=== PATIENT | female | born 2000 | race Hispanic/Latino ===

== ENCOUNTER 2018-11-18 22:24 | Emergency (ER) | payer SELFPAY ==
[2018-11-19 00:02] LABS: Absolute Lymphocytes (CBC) 1.8 K/uL (0.7-4.9); Basophils % 0.2 % (0-1.3); Hematocrit 35.6 % (36.0-45.0); Lymphocytes % 22.2 % (15.3-44.8); MPV 8.8 fL (7.6-11.3); RBC Red Blood Cell Count 3.85 M/uL (3.86-4.86)
[2018-11-19 00:04] LABS: Urine Blood 2+ (NEG); Urine Glucose NEGATIVE (NEG); Urine Protein NEGATIVE (NEG); Urine Specific Gravity >1.030 (1.005-1.030); Urine pH 5.5 (5.0-7.0)
[2018-11-19 00:06] LABS: Urine Bacteria 20-50 /HPF (<20); Urine Culture Reflex Order REFLEXED; Urine RBC <5 /HPF (NONE SEEN)
--- NOTE | 2018-11-19 00:58 | ER ---
Nurse's Notes [facility] Name: Lottie Zamudio Age: 18 yrs Sex: Female : 2000 Arrival Date: 11/18/2018 Time: 22:27 Bed 5 Private MD: Diagnosis: 13 weeks gestation of Presentation: 11/18 22:46 Presenting complaint: Patient states: vaginal bleeding, only spotting started today. pt ak1 sees CASINO DEALER in [place]. Transition of care: patient was not received from another setting of care. Onset of symptoms was November 18, 2018. Risk Assessment: Do you want to hurt yourself or someone else? Patient reports no desire to harm self or others. Initial Sepsis Screen: Does the patient meet any 2 criteria? No. Patient's initial sepsis screen is negative. Does the patient have a suspected source of infection? No. Patient's initial sepsis screen is negative. Note bulgarian speaking only. Care prior to arrival: None. 22:46 Method Of Arrival: Ambulatory ak1 22:46 Acuity: ROGERS 3 ak1 Triage Assessment: 22:47 General: Appears in no apparent distress. Behavior is calm, cooperative. ak1 CASINO DEALER: 22:47 LMP 08/24/2018, Verified, EDC 05/31/2019, Gestational age from LMP: 12 weeks 3 ak1 days Historical: - Allergies: 22:47 No Known Allergies; ak1 - Home Meds: 22:47 Vitamin Oral [Active]; ak1 - PMHx: 22:47 None; ak1 - PSHx: 22:47 Unable to obtain; ak1 - Immunization history:: Adult Immunizations unknown. - Social history:: Smoking status: Patient/guardian denies using tobacco. - Ebola Screening: : No symptoms or risks identified at this time. Screenin:48 Abuse screen: Denies threats or abuse. Denies injuries from another. Nutritional ak1 screening: No deficits noted. Tuberculosis screening: No symptoms or risk factors identified. Fall Risk None identified. Assessment: 23:46 Obstetrical Assessment: pt denies pain or discomfort. General: Appears in no apparent ea distress. Behavior is calm, cooperative, appropriate for age. Pain: Denies pain. Neuro: Level of Consciousness is awake, alert, obeys commands, Oriented to person, place, time, situation. Cardiovascular: Patient's skin is warm and dry. Respiratory: Airway is patent Respiratory effort is even, unlabored, Respiratory pattern is regular, symmetrical. GI: Patient currently denies abdominal pain. : Reports vaginal bleeding that is Report one episode of vaginal bleeding, states it was just one spot on her underwear. Derm: Skin is pink, warm \T\ dry. Vital Signs: 22:47 BP 120 / 56; Pulse 84; Resp 16; Temp 97.4; Pulse Ox 100% on R/A; Weight 56.7 kg (R); ak1 Height 5 ft. 3 in. (160.02 cm) (R); Pain 0/10; 23:52 BP 96 / 56; Pulse 70; Resp 18; Pulse Ox 100% ; ea 11/19 01:00 BP 101 / 64; Pulse 78; Resp 16; Temp 97.5; Pulse Ox 100% on R/A; rv 11/18 22:47 Body Mass Index 22.14 (56.70 kg, 160.02 cm) ak1 Vitals: 11/18 23:45 Heart Tones 160. ea ED Course: 22:27 Patient arrived in ED. ag3 22:47 Triage completed. ak1 22:47 Arm band placed on Patient placed in waiting room, Patient notified of wait time. pt ak1 given urine cup. 22:53 K[facility] Grossman [facility]-C [facility] kb 22:53 Boni Bean MD is Attending Physician. kb 23:23 Mirella Melvin, JESSICA is Primary Nurse. ea 23:35 Inserted saline lock: 20 gauge in right antecubital area, using aseptic technique. ea 23:46 Patient has correct armband on for positive identification. Placed in gown. Bed in low ea position. Call light in reach. 11/19 00:55 1St Trimest Single 1St Fetus In Process Unspecified. EDMS 01:14 No provider procedures requiring assistance completed. IV discontinued, intact, rv bleeding controlled, No redness/swelling at site. Pressure dressing applied. Administered Medications: No medications were administered Point of Care Testing: Urine : 11/18 23:48 hCG Reading: Positive; ea Outcome: 11/19 00:57 Discharge ordered by . kb 01:14 Discharged to home ambulatory. rv 01:14 Condition: good 01:14 Discharge instructions given to patient, Instructed on discharge instructions, follow up and referral plans. Demonstrated understanding of instructions, follow-up care. 01:14 Patient left the ED. rv Signatures: Dispatcher [employer] Kya Blankenship, TATIANNA PINTO-Iris Nelson, RN RN ak1 Mirella Melvin RN RN Brian Ahn, RN RN Melissa Cueva
--- NOTE | 2018-11-19 00:59 | EDPHYS ---
Physician Documentation [facility] Name: Lottie Zamudio Age: 18 yrs Sex: Female : 2000 Arrival Date: 11/18/2018 Time: 22:27 Bed 5 Private MD: ED Physician Boni Bean HPI: 11/19 00:13 This 18 yrs old Female presents to ER via Ambulatory with complaints of Vaginal kb Bleeding, + Preg <12wks. 00:13 The patient presents to the emergency department with vaginal bleeding, described as kb spotting. The estimated gestational age is 13 weeks. course: care: in [place], Leakage of Fluid: none appreciated, Ultrasound: the patient had an ultrasound, which was normal, Risk/complications: no obvious risks or complications are appreciated. Previous pregnancies: the patient has never been . Associated signs and symptoms: Pertinent positives: vaginal bleeding. The patient has not experienced similar symptoms in the past. The patient has not recently seen a physician. Pt reports she had a small spot of blood today. Denies any bleeding now. Denies abd pain. Has had normal checkups by her dr in [place]. DATA LIBRARIAN: 11/18 22:47 LMP 08/24/2018, Verified, EDC 05/31/2019, Gestational age from LMP: 12 weeks 3 ak1 days Historical: - Allergies: 22:47 No Known Allergies; ak1 - Home Meds: 22:47 Vitamin Oral [Active]; ak1 - PMHx: 22:47 None; ak1 - PSHx: 22:47 Unable to obtain; ak1 - Immunization history:: Adult Immunizations unknown. - Social history:: Smoking status: Patient/guardian denies using tobacco. - Ebola Screening: : No symptoms or risks identified at this time. ROS: 11/19 00:13 Constitutional: Negative for fever, chills, and weight loss, ENT: Negative for injury, kb pain, and discharge, Neck: Negative for injury, pain, and swelling, Cardiovascular: Negative for chest pain, palpitations, and edema, Respiratory: Negative for shortness of breath, cough, wheezing, and pleuritic chest pain, Abdomen/GI: Negative for abdominal pain, nausea, vomiting, diarrhea, and constipation, Back: Negative for injury and pain, MS/Extremity: Negative for injury and deformity, Skin: Negative for injury, rash, and discoloration, Neuro: Negative for headache, weakness, numbness, tingling, and seizure. : Positive for vaginal bleeding. Exam: 00:13 Constitutional: This is a well developed, well nourished patient who is awake, alert, kb and in no acute distress. Head/Face: Normocephalic, atraumatic. ENT: Nares patent. No nasal discharge, no septal abnormalities noted. Tympanic membranes are normal and external auditory canals are clear. Oropharynx with no redness, swelling, or masses, exudates, or evidence of obstruction, uvula midline. Mucous membranes moist. Neck: Trachea midline, no thyromegaly or masses palpated, and no cervical lymphadenopathy. Supple, full range of motion without nuchal rigidity, or vertebral point tenderness. No Meningismus. Chest/axilla: Normal chest wall appearance and motion. Nontender with no deformity. No lesions are appreciated. Cardiovascular: Regular rate and rhythm with a normal S1 and S2. No gallops, murmurs, or rubs. Normal PMI, no JVD. No pulse deficits. Respiratory: Lungs have equal breath sounds bilaterally, clear to auscultation and percussion. No rales, rhonchi or wheezes noted. No increased work of breathing, no retractions or nasal flaring. Abdomen/GI: Soft, non-tender, with normal bowel sounds. No distension or tympany. No guarding or rebound. No evidence of tenderness throughout. Back: No spinal tenderness. No costovertebral tenderness. Full range of motion. Skin: Warm, dry with normal turgor. Normal color with no rashes, no lesions, and no evidence of cellulitis. MS/ Extremity: Pulses equal, no cyanosis. Neurovascular intact. Full, normal range of motion. Neuro: Awake and alert, GCS 15, oriented to person, place, time, and situation. Cranial nerves II-XII grossly intact. Motor strength 5/5 in all extremities. Sensory grossly intact. Cerebellar exam normal. Normal gait. Vital Signs: 11/18 22:47 BP 120 / 56; Pulse 84; Resp 16; Temp 97.4; Pulse Ox 100% on R/A; Weight 56.7 kg (R); ak1 Height 5 ft. 3 in. (160.02 cm) (R); Pain 0/10; 23:52 BP 96 / 56; Pulse 70; Resp 18; Pulse Ox 100% ; ea 11/19 01:00 BP 101 / 64; Pulse 78; Resp 16; Temp 97.5; Pulse Ox 100% on R/A; rv 11/18 22:47 Body Mass Index 22.14 (56.70 kg, 160.02 cm) ak1 MDM: 11/18 23:23 Patient medically screened. kb 11/19 00:13 Data reviewed: vital signs, nurses notes. Data interpreted: Pulse oximetry: on room air kb is 100 %. Interpretation: normal. Counseling: I had a detailed discussion with the patient and/or guardian regarding: the historical points, exam findings, and any diagnostic results supporting the discharge/admit diagnosis, lab results, radiology results, the need for outpatient follow up, an OB/Gyne specialist, to return to the emergency department if symptoms worsen or persist or if there are any questions or concerns that arise at home. 11/18 23:07 Order name: Quantitative Hcg 11/18 23:07 Order name: Abo/rh Typing; Complete Time: 00:24 kb 11/18 23:07 Order name: Basic Metabolic Panel 11/18 23:07 Order name: CBC with Diff; Complete Time: 00:07 kb 11/18 23:33 Order name: Urine Microscopic Only; Complete Time: 00:07 ar5 11/18 23:40 Order name: Urine Dipstick--Ancillary (enter results); Complete Time: 00:07 ar5 11/18 23:07 Order name: Urine Test (obtain specimen); Complete Time: 23:34 kb 11/18 23:07 Order name: IV Saline Lock; Complete Time: 23:34 kb 11/18 23:07 Order name: Labs collected and sent; Complete Time: 23:34 kb 11/18 23:07 Order name: NPO; Complete Time: 23:34 kb 11/18 23:40 Order name: Urine --Ancillary (enter results); Complete Time: 00:07 ar5 11/19 00:13 Order name: Urine Culture EDRI 11/19 00:41 Order name: 1St Trimest Single 1St Fetus EDRI 11/18 23:07 Order name: Urine Dipstick-Ancillary (obtain specimen); Complete Time: 23:34 kb Administered Medications: No medications were administered Point of Care Testing: Urine : 11/18 23:48 hCG Reading: Positive; ea Disposition: 11/19 07:12 Co-signature as Attending Physician, Boni Bean MD Available for consultation at ps1 all times. . Disposition: 11/19/18 00:57 Discharged to Home. Impression: 13 weeks gestation of . - Condition is Stable. - Discharge Instructions: Second Trimester of , [id number]. - Medication Reconciliation Form, Thank You Letter, Antibiotic Education, Prescription Opioid Use form. - Follow up: Emergency Department; When: As needed; Reason: Worsening of condition. Follow up: Private Physician; When: 2 - 3 days; Reason: Recheck today's complaints, Continuance of care, Re-evaluation by your physician. Signatures: Dispatcher [employer] EDRI Kya Grossman, TATIANNA PINTO-Iris Nelson, RN RN ak1 Boni Bean MD MD ps1 Brian Oates RN RN rv Corrections: (The following items were deleted from the chart) 00:41 00:11 Transvaginal Ob+US.RAD.BRZ ordered. [facility] 01:14 00:57 11/19/2018 00:57 Discharged to Home. Impression: 13 weeks gestation of . rv Condition is Stable. Forms are Medication Reconciliation Form, Thank You Letter, Antibiotic Education, Prescription Opioid Use. Follow up: Emergency Department; When: As needed; Reason: Worsening of condition. Follow up: Private Physician; When: 2 - 3 days; Reason: Recheck today's complaints, Continuance of care, Re-evaluation by your physician. kb
[2018-11-19 01:20] LABS: BUN Blood Urea Nitrogen 14 mg/dL (7-18); Bicarbonate 23 mmol/L (21-32); Glucose Level 84 mg/dL (74-106); HCG, Quantitative 55174 mIU/mL (1-3); Potassium 3.4 mmol/L (3.5-5.1); Sodium Level 138 mmol/L (136-145)
--- NOTE | 2018-11-19 08:12 | RAD REPORT ---
EXAM DESCRIPTION: US - 1St Trimest Single 1St Fetus - 11/19/2018 12:53 am CLINICAL HISTORY: with vaginal bleeding COMPARISON: None. FINDINGS: The uterus measures 10 x 7 x 8 centimeters. pole with a crown-rump length 7 centime ters. . Cardiac activity 166 beats per minute 3 x 2 centimeter subchorionic bleed centimeter subchori onic bleed. An additional 2 x 1 centimeters subchorionic bleed present. Amniotic fluid within normal limits Placenta previa is not present. Right and left ovary appear normal. . An adnexal mass is not noted. No significant free fluid is seen. IMPRESSION: Single live intrauterine with an estimated gestational age 13 weeks 2 days ED D 05/25/2019 Subchorionic bleeds If a survey is desired should be performed in approximately 5 weeks
== END 2018-11-19 01:14 | disposition home or self-care (01) ==
LOC: ER 22:24
DX: O20.9 Hemorrhage in early pregnancy, unspecified (principal); Z3A.13 13 weeks gestation of pregnancy
CPT/HCPCS: 36415; 76801; 80048; 81003; 81015; 81025; 84702; 85025; 86900; 86901; 87086; 87088; 99284

== ENCOUNTER 2018-11-25 22:30 | Emergency (ER) | payer SELFPAY ==
--- OUTSIDE RECORDS SUMMARY | 2018-11-25 22:32 | XMS REPORT | Summary of Care ---
:2000 Author Organization [facility] Address [address] [place] [id number] Care Team Providers Name Role Phone Digna Tamayo [facility] Primary Care Provider Reason for Visit Reason Comments ULTRASOUND Encounter Details Date Type Department Care Team Description 11/25/2018 Case Management [facility]- Digna Tamayo, ULTRASOUND [facility] [address] [facility] [address] [address] [place], [place] [address] Allergies No Known Allergiesdocumented as of this encounter (statuses as of 11/25/2018) Medications No known medicationsdocumented as of this encounter (statuses as of 11/25/2018) Active Problems Problem Noted Date Vaginal bleeding in , second trimester 11/21/2018 High risk , antepartum 11/21/2018 Encounter for PPD test 11/21/2018 Estimated Date of Delivery Comments Yes 05/26/2019 Based on last menstrual period of 08/19/2018 documented as of this encounter (statuses as of 11/25/2018) Immunizations Name Administration Dates Next Due PPD (TB) 11/21/2018 (Deferred: Contraindication) documented as of this encounter Social History Tobacco Use Types Packs/Day Years Used Date Never Smoker Smokeless Tobacco: Never Used Alcohol Use Drinks/Week oz/Week Comments Not Currently Estimated Date of Delivery Comments Yes 05/26/2019 Based on last menstrual period of 08/19/2018 Sex Assigned at Date Recorded Not on file Job Start Date Occupation Industry Not on file Not on file Not on file Travel History Travel Start Travel End No recent travel history available. documented as of this encounter Last Filed Vital Signs Not on filedocumented in this encounter Plan of Treatment Date Type Specialty Care Team Description 11/26/2018 Nurse Visit [facility] Satellites Visit, [facility] Nurse 12/23/2018 Routine Visit OB Satellites Digna Tamayo, WATER ENGINE[employer] [address] [place], [place] [id number] Health Maintenance Due Date Last Done Comments MENINGOCOCCAL B VACCINES (1 of 2 - 2008 Risk Bexsero 2-dose series) HPV VACCINES (1 - Female 3-dose 2013 series) DTaP,Tdap,and Td Vaccines (1 - 2017 Tdap) INFLUENZA VACCINE 12/15/2018 CHLAMYDIA SCREENING 11/22/2019 11/21/2018 MENINGOCOCCAL VACCINE Aged Out No longer eligible based on patient's age to complete this topic PNEUMOCOCCAL 0-64 YEARS COMBINED Aged Out No longer eligible based on SERIES patient's age to complete this topic documented as of this encounter Results Not on filedocumented in this encounter Insurance Payer Benefit Plan / Subscriber ID Effective Phone Address Type Group Dates MEDICAID MEDICAID PENDING 2018-[address] Pending PENDING PENDING tarun [place] [id number] documented as of this encounter
--- OUTSIDE RECORDS SUMMARY | 2018-11-25 22:32 | XMS REPORT ---
:2000 [facility] Address [address] [place] [address] Dr. Telles[address] [place] [id number] Care Team Providers Name Role Phone Unavailable Unavailable Unavailable Problems This patient has no known problems. Allergies, Adverse Reactions, Alerts This patient has no known allergies or adverse reactions. Medications This patient has no known medications.
--- OUTSIDE RECORDS SUMMARY | 2018-11-25 22:32 | XMS REPORT | Summary of Care ---
:2000 Author Organization [facility] - Health Address [address] [place] [address] Care Team Providers Name Role Phone Digna Tamayo Primary Care Provider Encounter Details Date Type Department Care Team Description 11/21/2018 Orders Only [facility] Doctor Unassigned, No [address] [facility] [place] [address] [address] [place] [address] Allergies Not on Filedocumented as of this encounter (statuses as of 11/21/2018) Medications Not on filedocumented as of this encounter (statuses as of 11/21/2018) Active Problems Not on filedocumented as of this encounter (statuses as of 11/21/2018) Social History Tobacco Use Types Packs/Day Years Used Date Never Assessed Sex Assigned at Date Recorded Not on file Job Start Date Occupation Industry Not on file Not on file Not on file Travel History Travel Start Travel End No recent travel history available. documented as of this encounter Last Filed Vital Signs Not on filedocumented in this encounter Plan of Treatment Date Type Specialty Care Team Description 11/21/2018 Office Visit OB Digna Voss FNP [address] [place], [place] [address] Arrived 3, [facility] Room 11/21/2018 Initial Visit OB Digna oVss FNP [address] [place], [place] [phone] Health Maintenance Due Date Last Done Comments MENINGOCOCCAL B VACCINES (1 of 2 - 2008 Risk Bexsero 2-dose series) VARICELLA VACCINES (1 of 2 - 13+ 2011 2-dose series) HPV VACCINES (1 - Female 3-dose 2013 series) CHLAMYDIA SCREENING 2014 DTaP,Tdap,and Td Vaccines (1 - 2017 Tdap) INFLUENZA VACCINE 12/15/2018 MENINGOCOCCAL VACCINE Aged Out No longer eligible based on patient's age to complete this topic PNEUMOCOCCAL 0-64 YEARS COMBINED Aged Out No longer eligible based on SERIES patient's age to complete this topic documented as of this encounter Procedures Procedure Name Priority Date/Time Associated Diagnosis Comments ASSIGNMENT OF BENEFITS Routine 11/21/2018 1:56 PM CDT documented in this encounter Results Not on filedocumented in this encounter
--- OUTSIDE RECORDS SUMMARY | 2018-11-25 22:32 | XMS REPORT | Summary of Care ---
:2000 Author Organization [facility] Address [address] [place] [id number] Care Team Providers Name Role Phone Digna Tamayo Primary Care Provider Reason for Referral (Routine) Status Reason Specialty Diagnoses / Referred By Referred To Procedures Contact Contact New Request Diagnoses Encounter for PPD test Digna Tamayo, Procedures PPD (TB) SKIN TEST CULINARY ARTS INSTRUCTOR [address] [place] [address] Reason for Visit Reason Comments New OB Visit Encounter Details Date Type Department Care Team Description 11/21/[address] [facility]- Digna Tamayo High risk , antepartum (Primary Dx); Visit BLAIR [place] Vaginal bleeding in , second trimester; [address] BMI 23.0-23.9, adult; [place], [place] Recent foreign travel; [id number], [place] Encounter for PPD test [phone] [phone] Allergies No Known Allergiesdocumented as of this encounter (statuses as of 11/21/2018) Medications No known medicationsdocumented as of this encounter (statuses as of 11/21/2018) Active Problems Problem Noted Date Vaginal bleeding in , second trimester 11/21/2018 High risk , antepartum 11/21/2018 Encounter for PPD test 11/21/2018 Estimated Date of Delivery Comments Yes 05/26/2019 Based on last menstrual period of 08/19/2018 documented as of this encounter (statuses as of 11/21/2018) Immunizations Name Administration Dates Next Due PPD [...] of this encounter Last Filed Vital Signs Vital Sign Reading Time Taken Comments Blood Pressure 92/62 11/21/2018 2:42 PM CDT Pulse 66 11/21/2018 2:42 PM CDT Temperature 37.7 C (99.8 F) 11/21/2018 2:42 PM CDT Respiratory Rate 20 11/21/2018 2:42 PM CDT Oxygen Saturation - - Inhaled Oxygen Concentration - - Weight 53.8 kg (118 lb 8 oz) 11/21/2018 2:42 PM CDT Height 151 cm (4' 11.45") 11/21/2018 2:42 PM CDT Body Mass Index 23.57 11/21/2018 2:42 PM CDT documented in this encounter Progress Notes Digna Tamayo, CULINARY ARTS INSTRUCTOR - 11/21/2018 2:30 PM CDT Chief complaint: Chief Complaint Patient presents with New OB Visit CC: Initial Visit Lottie Herzog is a 18 year old, , /White female. Patient's last menstrual period was 08/19/2018. She is 13w3d with an intrauterine . Her Estimated Date of Delivery: 05/26/19. She is being seen today for her first obstetrical visit. Pt complains today of vaginal bleeding and mild cramping. Pt reports she had an ultrasound in [place] they said there was a small bleed inside and if she were ever to start bleeding they gave her a prescription for Dectil OB to start taking. She reports she started having light vaginal bleeding on 11/19/18 so she went to [facility] ER in [place], records requested. She reports she has been having light bleeding since that time. Started having some mild pains on the sides of her pelvis yesterday. Denies current physical, emotional or sexual abuse. Pt does report recent foreign travel to [place],denies any s/s illness or Zika. OB History T0 L0 SAB0 TAB0 Ectopic0 Multiple0 Live Births0 Name of Baby 1: Not recorded Date: Not recorded GA: Not recorded Delivery: Not recorded Apgar1: Not recorded Apgar5: Not recorded Living: Not recorded Histories OB History Para Term AB Living 1 SAB TAB Ectopic Multiple Live Births # Outcome Date GA Lbr Kishor/2nd Weight Sex Delivery Anes PTL Lv 1 Current Past Medical History: Diagnosis Date Anemia 2011 never on meds Seizures 2011 1 isolated seizure at ag 10, never put on meds, pt reports was due to anemia Family History Problem Relation Age of Onset Diabetes Mother No Significant Medical Problems Father Hypertension Maternal Aunt High cholesterol Maternal Aunt Hypertension Maternal Grandmother High cholesterol Paternal Grandfather Hypertension Paternal Grandfather Family Status Relation Name Status Mo Alive Fa Alive MAunt (Not Specified) MGMo Alive PGFa Alive History reviewed. No pertinent surgical history. Social History Socioeconomic History Marital status: Single Spouse name: Not on file Number of children: Not on file Years of education: Not on file Highest education level: Not on file Occupational History Not on file Social Needs Financial resource strain: Not on file Food insecurity: Worry: Not on file Inability: Not on file Transportation needs: Medical: Not on file Non-medical: Not on file Tobacco Use Smoking status: Never Smoker Smokeless tobacco: Never Used Substance and Sexual Activity Alcohol use: Not Currently Drug use: Never Sexual activity: Yes Partners: Male control/protection: None Comment: Last intercourse 11/14/2018 Lifestyle Physical activity: Days per week: Not on file Minutes per session: Not on file Stress: Not on file Relationships Social connections: Talks on phone: Not on file Gets together: Not on file Attends taoism service: Not on file Active member of club or organization: Not on file Attends meetings of clubs or organizations: Not on file Relationship status: Not on file Intimate partner violence: Fear of current or ex partner: Not on file Emotionally abused: Not on file Physically abused: Not on file Forced sexual activity: Not on file Other Topics Concern Not on file Social History Narrative Patient lives alone, patient feels safe at home. Patient denies any pets. Social History Substance and Sexual Activity Sexual Activity Yes Partners: Male control/protection: None Comment: Last intercourse 11/14/2018 Genetic Screen Autism / Mental Retardation: No Brittani Disease: No Congenital Heart Defect: No Cystic Fibrosis: No Down Syndrome: No Familial Dysautonomia: No Hemophilia or other Blood Disorders: No [place] Chorea: No Maternal Metabolic Disorder--specify (eg. Type 1 Diabetes, PKU): No Muscular Dystrophy: No Neural Tube Defect: No Recurrent Loss or a Stillbirth: No Sickle Cell Disease or Trait: No Ru Sachs: No Teratological Substances (specify type & strength/dose) since LMP: No Thalassemia: No Other Inherited Genetic or Chromosomal Disorder (specify): No No Significant History of Genetic Disorders: No Significant History of Genetic Disorders Labs Labs are pending. Radiology Radiology pending. Allergies Lottie has No Known Allergies. Medications Lottie currently has no medications in their medication list. Review of Systems Constitutional: Negative. Negative for appetite change, fatigue and fever. HENT: Negative. Eyes: Negative. Negative for visual disturbance. Respiratory: Negative. Breasts: Negative. Cardiovascular: Negative. Negative for palpitations and leg swelling. Gastrointestinal: Negative. Negative for abdominal pain, constipation, diarrhea , nausea and vomiting. Genitourinary: Positive for vaginal bleeding and pelvic pain. Negative for dysuria and vaginal discharge. Musculoskeletal: Negative. Skin: Negative. Negative for rash. Neurological: Negative. Negative for dizziness, light-headedness and headaches. Psychiatric/Behavioral: Negative. Endocrine: Endocrine negative BP 92/62 (BP Location: Right arm, Patient Position: Sitting, BP CUFF SIZE: Adult Small) | Pulse 66| Temp 37.7 C (99.8 F) (Oral) | Resp 20 | Ht 4' 11.45" (1.51 m) | Wt 118 lb 8 oz (53.8 kg) |LMP 08/19/2018 | BMI 23.57 kg/m Pregravid BMI: 23.3 Physical Exam Vitals reviewed. Constitutional: She is oriented to person, place, and time. She appears well- developed and well-nourished. Her body habitus is normal. See flowsheet Neck: No thyroid nodules and no thyromegaly palpated. Cardiovascular: Regular rate and rhythm. No murmur auscultated. No peripheral edema present. Pulmonary/Chest: Breath sounds clear to auscultation. Normal inspiratory effort. Abdominal: Abdomen is soft. No mass palpated. No tenderness present. There is no hepatosplenomegaly. Neuro/Psychiatric: She has a normal mood and affect. She is oriented to person, place, and time. Skin: Skin normal. No lesion and no rash present. Genitourinary Comments: Chaperoned by: Gayathri Alanis RN Breast: Right breast exhibits no mass, no nipple discharge and no tenderness. Left breast exhibits no mass, no nipple discharge and no tenderness. Normal left breast and normal right breast External genitalia: Normal external genitalia appropriate for age. No labial lesion. Bladder: No tenderness. Normal bladder Vagina:Normal vagina. No lesion inspected. No abnormal vaginal discharge found. Scant amount of old blood noted in vagina, no active bleeding. Cervix: Normal cervix. No lesion. No tenderness and no discharge present. Uterus: Uterus is normal size, normal position and non-tender. Normal uterus Adnexa: Right adnexa without tenderness. Left adnexa without tenderness. Normal left adnexa and normal right adnexa PHYSICAL: General Exam: HEENT: Normal Thyroid: Normal Lymph Node: Normal Neurological: Normal Heart: Normal Lungs: Normal Breasts: Normal Abdomen: Normal Skin: Normal Extremities: Normal Pelvic Exam: Vulva: Normal Vagina: Normal Cervix: Normal SVE closed/thick/high Membrane status: Intact Uterus: 13 Weeks Adnexa: Normal Rectum: Normal Spines: Average Subpubic Arch: Normal Assessment/Plan 1. High risk , antepartum 13w3d by LMP and exam TWG discussed Discussed use of Deet Repellent Initiate Vitamins Increase Fluid Intake. Minimum of 8 water bottles daily. Will order anatomy scan when insurance active - POCT TEST - POCT URINALYSIS W/O SPECIFIC GRAVITY - GLUCOSE 1 HOUR POST PRANDIAL - CBC WITH DIFF - GC & CHLAMYDIA AMPLIFIED ASSAY - HEPATITIS B SURFACE ANTIGEN - HIV 1/2 AG-AB WITH REFLEX - WORKUP, BLOOD BANK - RUBELLA SCREEN (REMI) IGG - GALV ONLY - SYPHILIS IGG/IGM - URINE CULTURE - VZV ANTIBODY SCREEN - POCT URINALYSIS W/O SPECIFIC GRAVITY; Standing - CBC WITH DIFFERENTIAL 2. Vaginal bleeding in , second trimester Very scant blood on exam, +FHR Discussed Dactil OB not used in the [place], and therefore cannot recommend continuation Discussed likely history and bleeding from a subchorionic hemorrhage or other similar pathology ER precautions for heavy bleeding or severe pain 3. BMI 23.0-23.9, adult 4. Recent foreign travel Will need PPD, denies s/s illness or Zika 5. Encounter for PPD test Patient to RTC on Sunday for placement. - PPD (TB) - PPD (TB) SKIN TEST Return to clinic in 4 weeks. Discussed treatment options. Reviewed patient instructions and provided printed copy. at 13w3d This visit did not involve counseling and coordination that comprised more than 50% of the visit time. Tere Escobar RN - 11/21/2018 2:30 PM CDTPatient is 18 year old female here for current . Patient is . 1) Previous delivery methods N/A 2) Patient is experiencing cramping for 1 day. 3) Patient is experiencing bleeding for the past 3 days. 4) LMP 08/19/2018 5) Last Pap was: N/A 6) Have you had a flu vaccine this season? NO 7) PPD candidate? Yes, patient in the [place] for 2 weeks only. 8) Patient complains of Cramping and bleeding. Patient denies soaking more than 1 pad an hour. Bleeding precautions given. 9) Patient denies history of physical, emotional, or sexual abuse. Patient states she currently feels safe at home. New ob packet given and discussed with patient. TERE ESCOBEDO RN 11/21/2018 2:56 PM documented in this encounter Plan of Treatment Date Type Specialty Care Team Description 11/26/2018 Nurse Visit OB Satellites Visit, [facility] Nurse 12/23/2018 Routine Visit OB Satellites Digna Tamayo FNP [address] [place] [address] [phone] Name Type Priority Associated Diagnoses Date/Time GLUCOSE 1 HOUR POST LAB Routine High risk , 11/21/2018 3:53 PM PRANDIAL antepartum CDT CBC WITH DIFF LAB Routine High risk , 11/21/2018 3:53 PM antepartum CDT GC & CHLAMYDIA AMPLIFIED LAB Routine High risk , 11/21/2018 3:53 PM ASSAY antepartum CDT HEPATITIS B SURFACE LAB Routine High risk , 11/21/2018 3:53 PM ANTIGEN antepartum CDT HIV 1/2 AG-AB WITH REFLEX LAB Routine High risk , 11/21/2018 3: 53 PM antepartum CDT RUBELLA SCREEN (REMI) IGG LAB Routine High risk , 11/21/2018 3: 53 PM antepartum CDT GALV ONLY - SYPHILIS LAB Routine High risk , 11/21/2018 3:53 PM IGG/IGM antepartum CDT URINE CULTURE LAB Routine High risk , 11/21/2018 3:53 PM antepartum CDT VZV ANTIBODY SCREEN LAB Routine High risk , 11/21/2018 3:53 PM antepartum CDT CBC WITH DIFFERENTIAL LAB Routine High risk , 11/21/2018 3:53 PM antepartum CDT Name Type Priority Associated Order Schedule Diagnoses PPD (TB) IMMUNIZATION/INJECT Routine Encounter for PPD Ordered: 11/21/2018 ION test PPD (TB) SKIN TEST PROCEDURES Routine Encounter for PPD Ordered: 11/21/2018 test WORKUP, LAB Routine High risk Ordered: 11/21/2018 BLOOD BANK , antepartum POCT URINALYSIS W/O LAB Routine High risk 20 Occurrences SPECIFIC GRAVITY , starting 11/21/2018 antepartum until 11/22/2019 Health Maintenance Due Date Last Done Comments [...] encounter Procedures Procedure Name Priority Date/Time Associated Comments Diagnosis POCT URINALYSIS W/O Routine 11/21/2018 2:34 PM High risk Results for this SPECIFIC GRAVITY CDT , procedure are in antepartum the results section. POCT TEST Routine 11/21/2018 2:34 PM High risk Results for this CDT , procedure are in antepartum the results section. documented in this encounter Results POCT URINALYSIS W/O SPECIFIC GRAVITY (11/21/2018 2:34 PM CDT) POCT PH U 8 5 - 8 mg/dl POCT U LEUK EST 1+ Negative - Negative POCT U NIT neg Negative - Negative POCT U PROT trace Negative - Negative POCT U GLU neg Negative - Negative POCT U KETONE neg Negative - Negative POCT U BLD large Negative - Negative Specimen Urine - URINE, CLEAN CATCH POCT TEST (11/21/2018 2:34 PM CDT) POCT PREG Positive On board controls acceptable Yes with C Line POCT PREG LOT # POCT PREG TEST DATE Specimen Urine - URINE, CLEAN CATCH documented in this encounter Visit Diagnoses Diagnosis High risk , antepartum - Primary Vaginal bleeding in , second trimester BMI 23.0-23.9, adult Recent foreign travel Encounter for PPD test Screening examination for pulmonary tuberculosis documented in this encounter Insurance Payer Benefit Plan / Subscriber ID Effective Phone Address Type Group Dates MEDICAID MEDICAID PENDING [id number] P[place] [address] documented as of this encounter
[2018-11-25 23:20] LABS: Absolute Lymphocytes (CBC) 1.6 K/uL (0.7-4.9); Basophils % 0.4 % (0-1.3); Hematocrit 32.8 % (36.0-45.0); Lymphocytes % 20.4 % (15.3-44.8); MPV 8.3 fL (7.6-11.3); RBC Red Blood Cell Count 3.59 M/uL (3.86-4.86)
[2018-11-25] MEDS ORDERED: NA CHLORIDE 0.9% 1,000 ML ONE (23:47)
[2018-11-25 23:49] LABS: BUN Blood Urea Nitrogen 11 mg/dL (7-18); Bicarbonate 24 mmol/L (21-32); Glucose Level 110 mg/dL (74-106); HCG, Quantitative 35819 mIU/mL (1-3); Potassium 3.2 mmol/L (3.5-5.1); Sodium Level 140 mmol/L (136-145)
[2018-11-26] MEDS ORDERED: METHYLERGONOVINE 0.2MG/ML AMP IM ONE (00:58)
[2018-11-26] MEDS ORDERED: NA CHLORIDE 0.9% 0 ML ONE (02:15)
[2018-11-26 02:33] LABS: Hematocrit 31.5 % (36.0-45.0)
--- NOTE | 2018-11-26 03:16 | EDPHYS ---
Physician Documentation [facility] Name: Lottie Zamudio Age: 18 yrs Sex: Female : 2000 Arrival Date: 11/25/2018 Time: 22:32 Bed 13 Private MD: ED Physician Frandy Jones HPI: 11/26 04:55 This 18 yrs old Female presents to ER via Wheelchair with complaints of tw4 Vaginal Bleeding - 14 wks preg. 04:55 The patient presents with vaginal bleeding that is. Onset: The symptoms/episode tw4 began/occurred today. Modifying factors: The symptoms are alleviated by nothing, the symptoms are aggravated by nothing. Associated signs and symptoms: The patient has no apparent associated signs or symptoms. Severity of symptoms: At their worst the symptoms were moderate. The patient has not experienced similar symptoms in the past. BUTCHER: 11/25 22:56 LMP 08/24/2018 rr5 Historical: - Allergies: 11/26 00:09 No Known Allergies; tr5 - Home Meds: 00:09 Vitamin Oral [Active]; tr5 - PMHx: 00:09 None; tr5 - PSHx: 11/25 23:15 None; tr5 - Immunization history:: Adult Immunizations up to date. - Social history:: Smoking status: Patient/guardian denies using tobacco. - Ebola Screening: : No symptoms or risks identified at this time. ROS: 11/26 04:55 Positive for vaginal bleeding. tw4 Constitutional: Negative for fever, chills, and weight loss, Cardiovascular: Negative for chest pain, palpitations, and edema, Respiratory: Negative for shortness of breath, cough, wheezing, and pleuritic chest pain, Abdomen/GI: Negative for abdominal pain, nausea, vomiting, diarrhea, and constipation, MS/Extremity: Negative for injury and deformity, Skin: Negative for injury, rash, and discoloration. Exam: 04:55 Constitutional: This is a well developed, well nourished patient who is awake, alert, tw4 and in no acute distress. Head/Face: Normocephalic, atraumatic. Chest/axilla: Normal chest wall appearance and motion. Nontender with no deformity. No lesions are appreciated. Cardiovascular: Regular rate and rhythm with a normal S1 and S2. No gallops, murmurs, or rubs. Normal PMI, no JVD. No pulse deficits. Respiratory: Lungs have equal breath sounds bilaterally, clear to auscultation and percussion. No rales, rhonchi or wheezes noted. No increased work of breathing, no retractions or nasal flaring. Abdomen/GI: Soft, non-tender, with normal bowel sounds. No distension or tympany. No guarding or rebound. No evidence of tenderness throughout. 04:55 : Pelvic Exam: Speculum exam: severe bleeding, blood clots in vaginal vault, os that is open, tissue in vagina is seen, the nurse was present for the exam. Vital Signs: 11/25 22:56 BP 115 / 74; Pulse 115; Resp 20; Temp 99.2; Pulse Ox 100% on R/A; Weight 53.52 kg; ea Height 5 ft. 1 in. (154.94 cm); Pain 10/10; 23:30 BP 111 / 76; Pulse 120; Resp 17; Pulse Ox 99% ; tr5 23:50 BP 114 / 76; Pulse 94; Resp 16; Pulse Ox 100% on R/A; tr5 11/26 00:30 BP 99 / 48; Pulse 86; Resp 14; Pulse Ox 99% on R/A; tr5 01:00 BP 94 / 59; Pulse 88; Resp 13; Pulse Ox 100% on R/A; tr5 02:00 BP 95 / 55; Pulse 81; Resp 16; Pulse Ox 99% ; rr5 02:46 BP 99 / 59; Pulse 85; Resp 16; Pulse Ox 100% on R/A; rr5 03:16 BP 94 / 54; Pulse 71; Resp 15; Pulse Ox 99% ; rr5 08 22:56 Body Mass Index 22.30 (53.52 kg, 154.94 cm) ea MDM: 11/25 22:58 Patient medically screened. tw4 11/26 04:55 Data reviewed: vital signs, nurses notes. Counseling: I had a detailed discussion with [facility] the patient and/or guardian regarding: the historical points, exam findings, and any diagnostic results supporting the discharge/admit diagnosis. 04:55 ED course: Pt has miscarriage with fetus visualized in POC. Pt's POC sent to [facility] laboratory. Pt given Methergine and bleeding ceased. 11/25 22:58 Order name: Quantitative Hcg; Complete Time: 00:27 11/25 22:58 Order name: Abo/rh Typing; Complete Time: 00:27 11/25 22:58 Order name: Basic Metabolic Panel; Complete Time: 00:27 11/26 00:27 Interpretation: Normal except: K 3.2; CRE 0.49; GLUC 110. 11/25 22:58 Order name: CBC with Diff; Complete Time: 00:27 11/26 00:28 Interpretation: Normal except: RBC 3.59; HCT 32.8; MCHC 36.5. 11/26 02:01 Order name: Hemoglobin; Complete Time: 03:39 lp1 11/26 03:39 Interpretation: Normal except: HGB 11.5. 11/26 02:01 Order name: Hematocrit; Complete Time: 03:39 lp1 11/25 22:58 Order name: IV Saline Lock; Complete Time: 23:09 11/25 22:58 Order name: Labs collected and sent; Complete Time: 23:09 11/25 22:58 Order name: NPO; Complete Time: 23:09 11/26 00:30 Order name: OB Follow Up EDMS Administered Medications: 01:00 Drug: METHERgine 0.2 mg Route: IM; Site: right deltoid; rv 01:45 Follow up: Response: Pain is decreased tr5 02:45 Drug: NS 0.9% 1000 ml Route: IV; Rate: 1000 ml; Site: right hand; rr5 03:46 Follow up: Response: No adverse reaction; IV Status: Completed infusion; IV Intake: rr5 1000ml Disposition: 11/26/18 03:15 Discharged to Home. Impression: Complete . - Condition is Stable. - Discharge Instructions: Miscarriage. - Prescriptions for Ibuprofen 800 mg Oral Tablet - take 1 tablet by ORAL route every 8 hours As needed take with food; 30 tablet. - Medication Reconciliation Form, Thank You Letter, Antibiotic Education, Prescription Opioid Use form. - Follow up: Private Physician; When: Upon discharge from the Emergency Department; Reason: If symptoms return, Recheck today's complaints, Continuance of care. Follow up: Allen Amezquita MD; When: Upon discharge from the Emergency Department; Reason: If symptoms return, Recheck today's complaints, Continuance of care. - Problem is new. - Symptoms have improved. Signatures: Dispatcher [employer] [facility] Rain Johnson, RN RN lp1 Mirella Melvin, RN Frandy Patel ea, MD MD tw4 Brian Oates, RN RN Seamus Kirby, RN RN rr5 Doug Covarrubias, RN RN tr5 Corrections: (The following items were deleted from the chart) 00:27 11/25 22:59 OB Complete+[id number].RAD.[email or web address] ordered. [facility] 11/26 03:54 03:15 11/26/2018 03:15 Discharged to Home. Impression: Complete . Condition is rr5 Stable. Forms are Medication Reconciliation Form, Thank You Letter, Antibiotic Education, Prescription Opioid Use. Follow up: Private Physician; When: Upon discharge from the Emergency Department; Reason: If symptoms return, Recheck today's complaints, Continuance of care. Follow up: Allen Amezquita; When: Upon discharge from the Emergency Department; Reason: If symptoms return, Recheck today's complaints, Continuance of care. Problem is new. Symptoms have improved. tw4
--- NOTE | 2018-11-26 03:16 | ER ---
Nurse's Notes [facility] Name: Lottie Zamudio Age: 18 yrs Sex: Female : 2000 Arrival Date: 11/25/2018 Time: 22:32 Bed 13 Private MD: Diagnosis: Complete Presentation: 11/25 22:53 Presenting complaint: Patient states: Pt reports she started having cramping pain ea , pt went to the OB at [facility] and was told if bleeding occurred to come to ED. Pt reports she started bleeding this evening with more intense pain. Reports she filled 2 pads within the last 20 minutes and is passing clots. Transition of care: patient was not received from another setting of care. Onset of symptoms was November 25, 2018. Risk Assessment: Do you want to hurt yourself or someone else? Patient reports no desire to harm self or others. Initial Sepsis Screen: Does the patient meet any 2 criteria? No. Patient's initial sepsis screen is negative. Does the patient have a suspected source of infection? No. Patient's initial sepsis screen is negative. Care prior to arrival: None. 22:53 Method Of Arrival: Wheelchair ea 22:53 Acuity: ROGERS 3 ea Triage Assessment: 22:57 : Reports vaginal bleeding that is bright red, heavy flow since this evening. ea 22:58 General: Appears uncomfortable, Behavior is restless. Pain: Complains of pain in ea suprapubic area Pain currently is 10 out of 10 on a pain scale. Cardiovascular: Patient's skin is warm and dry. Respiratory: Airway is patent Respiratory effort is even, unlabored, Respiratory pattern is regular, symmetrical. POURER METAL: 22:56 LMP 08/24/2018 rr5 Historical: - Allergies: 11/26 00:09 No Known Allergies; tr5 - Home Meds: 00:09 Vitamin Oral [Active]; tr5 - PMHx: 00:09 None; tr5 - PSHx: 11/25 23:15 None; tr5 - Immunization history:: Adult Immunizations up to date. - Social history:: Smoking status: Patient/guardian denies using tobacco. - Ebola Screening: : No symptoms or risks identified at this time. Screenin:57 Abuse screen: Denies threats or abuse. Nutritional screening: No deficits noted. ea Tuberculosis screening: No symptoms or risk factors identified. Fall Risk None identified. Assessment: 23:15 General: Appears uncomfortable, Behavior is cooperative, crying. Pain: Complains of tr5 pain in right lower quadrant and left lower quadrant Pain does not radiate. Pain currently is 9 out of 10 on a pain scale. Quality of pain is described as crampy. Neuro: Level of Consciousness is awake, alert, Oriented to person, place, time, Telemarketer are equal bilaterally Moves all extremities. Cardiovascular: Heart tones present Bruits absent Capillary refill < 3 seconds Pulses are all present. Edema is absent. Respiratory: Airway is patent Trachea midline Respiratory effort is even, unlabored, Respiratory pattern is regular, symmetrical, Breath sounds are clear bilaterally. GI: Abdomen is round Bowel sounds present X 4 quads. Abd is soft Reports lower abdominal pain. : Reports cramping, in bilateral lower quadrant(s) vaginal bleeding that is bright red, with clots, heavy flow. EENT: No signs and/or symptoms were reported regarding the EENT system. Derm: No signs and/or symptoms reported regarding the dermatologic system. Musculoskeletal: Capillary refill < 3 seconds, Range of motion: intact in all extremities. 11/26 00:02 Reassessment: Patient appears in no apparent distress at this time. Patient and/or tr5 family updated on plan of care and expected duration. Pain level reassessed. Ultrasound at bedside. 01:17 Reassessment: Patient and/or family updated on plan of care and expected duration. Pain tr5 level reassessed. Patient is alert, oriented x 3, equal unlabored respirations, skin warm/dry/pink. Vaginal bleeding assesed. Bleeding is decreasing and some tissues passed. Provider notified. 02:46 Reassessment: Patient appears in no apparent distress at this time. Patient is alert, rr5 oriented x 3, equal unlabored respirations, skin warm/dry/pink. awaiting for H\T\H result. Patient states feeling better. 02:51 Reassessment: Provider bedside updating patient on plan of care. Vaginal bleeding tr5 continues to decrease. Will continue to monitor. 03:30 Reassessment: review done by ED provider. patient is for discharge. rr5 03:46 Reassessment: Patient appears in no apparent distress at this time. Patient is alert, rr5 oriented x 3, equal unlabored respirations, skin warm/dry/pink. discharge instruction given and explained without complaints made. Patient states feeling better. Patient states symptoms have improved. Vital Signs: 11/25 22:56 BP 115 / 74; Pulse 115; Resp 20; Temp 99.2; Pulse Ox 100% on R/A; Weight 53.52 kg; ea Height 5 ft. 1 in. (154.94 cm); Pain 10/10; 23:30 BP 111 / 76; Pulse 120; Resp 17; Pulse Ox 99% ; tr5 23:50 BP 114 / 76; Pulse 94; Resp 16; Pulse Ox 100% on R/A; tr5 11/26 00:30 BP 99 / 48; Pulse 86; Resp 14; Pulse Ox 99% on R/A; tr5 01:00 BP 94 / 59; Pulse 88; Resp 13; Pulse Ox 100% on R/A; tr5 02:00 BP 95 / 55; Pulse 81; Resp 16; Pulse Ox 99% ; rr5 02:46 BP 99 / 59; Pulse 85; Resp 16; Pulse Ox 100% on R/A; rr5 03:16 BP 94 / 54; Pulse 71; Resp 15; Pulse Ox 99% ; rr5 11/25 22:56 Body Mass Index 22.30 (53.52 kg, 154.94 cm) ea ED Course: 11/25 22:32 Patient arrived in ED. am2 22:56 Triage completed. ea 22:58 Frandy Jones MD is Attending Physician. tw4 22:58 Patient has correct armband on for positive identification. Bed in low position. Call ea light in reach. Side rails up X2. 22:58 Arm band placed on right wrist. Patient placed in an exam room, on a stretcher, on ea pulse oximetry. 23:04 Doug Covarrubias RN is Primary Nurse. tr5 23:14 Inserted saline lock: 20 gauge in right antecubital area, using aseptic technique. mt Blood collected. 23:15 Pulse ox on. NIBP on. tr5 11/26 00:02 Assist provider with pelvic exam: Set up pelvic tray. Performed by Frandy Jones MD tr5 Specimens sent to lab. POC passed, sent to pathology, Ultrasound at bedside to assess any retained contents.. Patient tolerated well. 00:30 OB Follow Up In Process Unspecified. EDMS 02:20 IV discontinued, Infiltrated. tr5 02:30 Inserted saline lock: 20 gauge in left antecubital area, using aseptic technique. tr5 02:45 Inserted saline lock: 20 gauge in right antecubital area, using aseptic technique. tr5 02:47 Report given to Seamus LOPEZ. tr5 03:14 Allen Amezquita MD is Referral Physician. tw4 03:47 IV discontinued, intact, bleeding controlled, No redness/swelling at site. Pressure rr5 dressing applied. Administered Medications: 01:00 Drug: METHERgine 0.2 mg Route: IM; Site: right deltoid; rv 01:45 Follow up: Response: Pain is decreased tr5 02:45 Drug: NS 0.9% 1000 ml Route: IV; Rate: 1000 ml; Site: right hand; rr5 03:46 Follow up: Response: No adverse reaction; IV Status: Completed infusion; IV Intake: rr5 1000ml Intake: 03:46 IV: 1000ml; Total: 1000ml. rr5 Outcome: 03:15 Discharge ordered by . tw4 03:47 Discharged to home via wheelchair, with family. rr5 03:47 Condition: stable 03:47 Discharge instructions given to patient, family, Instructed on discharge instructions, follow up and referral plans. medication usage, Demonstrated understanding of instructions, follow-up care, medications, Prescriptions given X 1. 03:54 Patient left the ED. rr5 Signatures: Dispatcher [employer] EDMS Lynsey Dupont Moriah mt Antunez, Elena, RN RN ea Wadley, Terrence, MD MD tw4 Brian Oates RN RN rv Roque, Raymond, RN RN rr5 Doug Covarrubias RN RN tr5 Corrections: (The following items were deleted from the chart) 01:18 00:02 Reassessment: Ultrasound at bedside. tr5 tr5 02:51 02:45 Inserted saline lock: 22 gauge in right hand, using aseptic technique. tr5 tr5 02:53 01:17 Reassessment: Patient and/or family updated on plan of care and expected tr5 duration. Pain level reassessed. Patient is alert, oriented x 3, equal unlabored respirations, skin warm/dry/pink. tr5
--- NOTE | 2018-11-26 08:06 | RAD REPORT ---
EXAM DESCRIPTION: US - OB Follow Up - 11/26/2018 12:29 am CLINICAL HISTORY: with vaginal bleeding COMPARISON: November 19, 2018 FINDINGS: The uterus measures 11 x 6 x 7 centimeters The endometrial stripe measures 4.1 centimeters and is heterogeneous. Increased blood flow is present . Gestational sac/ pole are no longer visualized. Neither ovary was visualized. No significant free fluid Right and left adnexal unremarkable IMPRESSION: Incomplete
== END 2018-11-26 03:54 | disposition home or self-care (01) ==
LOC: ER 22:30
DX: O03.9 Complete or unspecified spontaneous abortion without complication (principal); Z3A.14 14 weeks gestation of pregnancy
CPT/HCPCS: 36415; 76816; 80048; 84702; 85014; 85018; 85025; 86900; 86901; 88305; 96360; 96372; 99284; J2210; J7030